=== PATIENT | male | born 1940 | race Caucasian/White ===

== ENCOUNTER 2021-09-16 17:04 | Observation (INO) | payer MEDICARE ==
[2021-09-16] VITALS (17 sets, daily range): BP systolic 125–147; BP diastolic 62–81
[~2021-09-16] VITALS: Ht 170.2 cm; Wt 92.0 kg
--- NOTE | 2021-09-16 17:40 | NUR ---
PT BROUGHT TO TX ROOM VIA WHEELCHAIR, STABLE
[2021-09-16 18:17] LABS: HEMATOCRIT 34.4 % (39.0-50.0); IMMATURE GRANULOCYTES 0.7 % (0.0-5.0); MEAN CELL VOLUME 90.1 fL CALC (80.0-100.0); MEAN CORPUSCULAR HGB 26.2 pG CALC (26.0-32.0); MEAN CORPUSCULAR HGB CONC 29.1 g/dL CAL (32.0-36.0); NEUT# 2.9 thou/uL (1.82-7.42); RED BLOOD COUNT 3.82 mill/uL (4.70-6.10); RED CELL DISTRI WIDTH 18.4 % (11.5-15.5)
[2021-09-16 18:30] LABS: INTERNATIONAL NORMALIZED RATIO 1.7 RATIO (0.7-1.3); PROTHROMBIN TIME 16.9 SECONDS (9.0-12.5)
[2021-09-16 18:31] LABS: ALBUMIN 3.2 g/dL (3.2-5.0); BILIRUBIN, TOTAL 0.8 mg/dL (0.0-1.4); CREATININE 1.5 mg/dL (0.7-1.3); POTASSIUM 3.5 mmol/l (3.5-5.1); TOTAL PROTEIN 6.3 g/dL (6.3-8.2)
[2021-09-16 18:47] LABS: URINE BILIRUBIN - DIPSTICK NEGATIVE (NEGATIVE); URINE BLOOD DIPSTICK SMALL (NEGATIVE); URINE COLOR YELLOW; URINE GLUCOSE - DIPSTICK 100 mg/dL (NEGATIVE); URINE KETONE NEGATIVE (NEGATIVE); URINE LEUK ESTERASE MODERATE (NEGATIVE); URINE NITRITE - DIPSTICK NEGATIVE (Negative); URINE PROTEIN - DIPSTICK 30 mg/dL (NEG-TRACE); URINE UROBILINOGEN - DIPSTICK 0.2 E.U./dL (0.2)
[2021-09-16 18:54] LABS: URINE WBC >100 WBC/hpf (0-5)
--- NOTE | 2021-09-16 22:48 | NUR ---
PT ARRIVED TO THE ICU BY WHEELCHAIR, A/Ox4, NO DISTRESS NOTED, ON RA, BED ALARM ON AND IN LOW POSITION, CALL LIGHT IN REACH
--- NOTE | 2021-09-17 00:03 | NUR ---
PT IN BED ASLEEP WITH CPAP ON, NO DISTRESS NOTED, BED ALARM ON AND IN LOW POSITION, CALL LIGHT IN REACH
[2021-09-17 00:10] VITALS: BP 142/76
[2021-09-17 04:01] VITALS: BP 166/85
[2021-09-17 04:44] LABS: HEMATOCRIT 34.3 % (39.0-50.0); MEAN CELL VOLUME 88.9 fL CALC (80.0-100.0); MEAN CORPUSCULAR HGB 25.9 pG CALC (26.0-32.0); MEAN CORPUSCULAR HGB CONC 29.2 g/dL CAL (32.0-36.0); RED BLOOD COUNT 3.86 mill/uL (4.70-6.10); RED CELL DISTRI WIDTH 18.4 % (11.5-15.5)
[2021-09-17 05:15] LABS: ANION GAP 12 (6-22 (CALC)); BUN 28 mg/dL (8-23); BUN/CREATININE RATIO 21 (12-20 (CALC)); CARBON DIOXIDE 26 mmol/l (22-30); CHLORIDE 104 mmol/l (95-108); CREATININE 1.3 mg/dL (0.7-1.3); GFR 53 ML/MIN (>=60 (CALC)); GFR FOR AFR.AMER. > 60 ML/MIN (>=60 (CALC)); MAGNESIUM 2.1 mg/dL (1.6-2.3); POTASSIUM 3.2 mmol/l (3.5-5.1); SODIUM 139 mmol/l (137-146)
--- NOTE | 2021-09-17 06:55 | NUR ---
RECIEVED REPORT FROM MIRIAM ADAMS
--- NOTE | 2021-09-17 07:20 | NUR ---
PT RESTING IN HIGH FOWLERS POSITION. PT A/OX3 ASSESSMENT AND VITAL SIGNS COMPLETED. HEART RYTHYM NORMAL TELE IN PLACE. RESPIRATIONS UNLABORED SOME CRACKLES. BOWEL SOUNDS ACTIVE. IV SITE PATENT/FLUSHED. PT DENIES ANY ADDITONAL NEEDS AT THE MOMENT. PT INSTRUCTED TO USE CALL LIGHT NEEDED. PT VERBALLY STATED UNDERSTANDING. ALL SAFETY PRECAUTIONS IN PLACE WITH CALL LIGHT IN REACH.
[2021-09-17 08:00] VITALS: BP 137/69
[2021-09-17 08:01] VITALS: BP 141/73
[2021-09-17 08:14] VITALS: BP 137/69
[2021-09-17] MEDS ORDERED: CLOPIDOGREL75 MG PO (12:08)
[2021-09-17] MEDS ORDERED: WARFARIN6 MG PO (12:09)
[2021-09-17] MEDS ORDERED: WARFARIN4 MG PO (12:11)
[2021-09-17] MEDS ORDERED: LASIX 80 MG TAB80 MG PO (12:12)
[2021-09-17] MEDS ORDERED: AVAPRO75 MG PO ×2 (12:12→12:13)
[2021-09-17] MEDS ORDERED: TOPROL XL25 M1 PO (12:14)
[2021-09-17] MEDS ORDERED: CRESTOR10 MG PO (12:15)
[2021-09-17] MEDS ORDERED: VICTOZA18 MG/3 ML SC (12:17)
[2021-09-17] MEDS ORDERED: NOVOLOG FL100 UNIT/M SC (12:17)
[2021-09-17] MEDS ORDERED: TAMSULOSIN HCL0.4 MG PO (12:19)
[2021-09-17] MEDS ORDERED: LANTUS SOL100 UNIT/M SC (12:19)
[2021-09-17] MEDS ORDERED: FINASTERIDE5 MG PO (12:19)
[2021-09-17] MEDS ORDERED: XALATAN 0.005%2.5 ML OU (12:20)
--- NOTE | 2021-09-17 12:20 | NUR ---
PT RESTING WITH FAMILY AT BEDSIDE. PT AND FAMILY EDUCATED ON DC INSTRUCTIONS. BOTH PT AND FAMILY VERBALLY STATED UNDERSTANDING. IV REMOVED WITH CATH INTACT. TELE MONITOR AND PULSE OX REMOVED. PT DRESSED SELF WITH MINIMAL HELP.
[2021-09-17] MEDS ORDERED: COMBIGAN0.2 MG/0.5 OU (12:21)
[2021-09-17] MEDS ORDERED: AZOPT1 % OD (12:22)
[2021-09-17] MEDS ORDERED: VENLAFAXINE HC150 MG PO (12:23)
[2021-09-17] MEDS ORDERED: COQ10200 MG PO (12:23)
[2021-09-17] MEDS ORDERED: NEURONTIN300 MG PO (12:24)
[2021-09-17] MEDS ORDERED: OMEPRAZOLE DR40 MG PO (12:24)
[2021-09-17] MEDS ORDERED: HORIZANT300 MG PO (12:26)
[2021-09-17] MEDS ORDERED: VITAMIN B-12500 MCG PO (12:26)
[2021-09-17] MEDS ORDERED: VITAMIN D32000 UNI2 PO (12:27)
[2021-09-17] MEDS ORDERED: MAGNESIUM250 M3 PO (12:28)
[2021-09-17] MEDS ORDERED: TRELEGY ELLIPTA1 AER PO (12:28)
[2021-09-17] MEDS ORDERED: ALBUTEROL SUL0.083 % IN (12:30)
[2021-09-17] MEDS ORDERED: ELIGARD7.5 MG SC (12:31)
--- NOTE | 2021-09-17 13:23 | NUR ---
Discharge instructions given. Patient verbalizes understanding of same. Discharged in stable condition via Wheelchair to Home with staff. All belongings sent with pt.
== END 2021-09-17 13:23 | disposition home or self-care (01) ==
LOC: ED 17:04 → ICU 19:03
PROVIDERS: Nurse Practitioner; ADMIT Hospitalist; ATTEND Hospitalist
DX: I11.0 Hypertensive heart disease with heart failure (principal); I50.9 Heart failure, unspecified; E11.9 Type 2 diabetes mellitus without complications; I48.91 Unspecified atrial fibrillation; Z79.01 Long term (current) use of anticoagulants; Z79.4 Long term (current) use of insulin; Z20.822 Contact with and (suspected) exposure to COVID-19

== ENCOUNTER 2021-09-19 10:59 | Emergency (ER) | payer MEDICARE ==
[2021-09-19] VITALS (9 sets, daily range): BP systolic 128–143; BP diastolic 62–77
[~2021-09-19] VITALS: Ht 170.2 cm; Wt 96.0 kg
[~2021-09-19 10:59] MED LIST: ALBUTEROL SUL0.083 % IN; AVAPRO75 MG PO; AZOPT1 % OD; CLOPIDOGREL75 MG PO; COMBIGAN0.2 MG/0.5 OU; COQ10200 MG PO; CRESTOR10 MG PO; ELIGARD7.5 MG SC; FINASTERIDE5 MG PO; HORIZANT300 MG PO; LANTUS SOL100 UNIT/M SC; LASIX 80 MG TAB80 MG PO; MAGNESIUM250 M3 PO; NEURONTIN300 MG PO; NOVOLOG FL100 UNIT/M SC; OMEPRAZOLE DR40 MG PO; TAMSULOSIN HCL0.4 MG PO; TOPROL XL25 M1 PO; TRELEGY ELLIPTA1 AER PO; VENLAFAXINE HC150 MG PO; VICTOZA18 MG/3 ML SC; VITAMIN B-12500 MCG PO; VITAMIN D32000 UNI2 PO; WARFARIN4 MG PO; WARFARIN6 MG PO; XALATAN 0.005%2.5 ML OU
[2021-09-19 12:03] LABS: HEMATOCRIT 36.2 % (39.0-50.0); HEMOGLOBIN 10.4 g/dl (14.0-18.0); MEAN CELL VOLUME 90.5 fL CALC (80.0-100.0); MEAN CORPUSCULAR HGB CONC 28.7 g/dL CAL (32.0-36.0); NEUT# 3.28 thou/uL (1.82-7.42); RED CELL DISTRI WIDTH 18.6 % (11.5-15.5)
[2021-09-19 12:39] LABS: ALBUMIN 3.6 g/dL (3.2-5.0); BILIRUBIN, TOTAL 0.7 mg/dL (0.0-1.4); CREATININE 1.5 mg/dL (0.7-1.3); POTASSIUM 3.2 mmol/l (3.5-5.1); TOTAL PROTEIN 7.1 g/dL (6.3-8.2)
[2021-09-19 12:44] LABS: INTERNATIONAL NORMALIZED RATIO 1.8 RATIO (0.7-1.3); PROTHROMBIN TIME 18.1 SECONDS (9.0-12.5)
[2021-09-19 13:35] LABS: URINE BILIRUBIN - DIPSTICK NEGATIVE (NEGATIVE); URINE BLOOD DIPSTICK SMALL (NEGATIVE); URINE COLOR YELLOW; URINE GLUCOSE - DIPSTICK 100 mg/dL (NEGATIVE); URINE KETONE NEGATIVE (NEGATIVE); URINE PROTEIN - DIPSTICK NEGATIVE (NEG-TRACE); URINE UROBILINOGEN - DIPSTICK 0.2 E.U./dL (0.2)
[2021-09-19 13:47] LABS: URINE LEUK ESTERASE SMALL (NEGATIVE); URINE NITRITE - DIPSTICK NEGATIVE (Negative)
[2021-09-19 13:48] LABS: URINE WBC 20-50 WBC/hpf (0-5)
[2021-09-19] MEDS ORDERED: CIPROFLOXACN500 MG PO (14:07)
--- NOTE | 2021-09-20 11:19 | NUR ---
Pneumonia post discharge follow up call completed today, 09/20/21. Pt. states he is doing well. No fever, chills, or SOB. Pt. istaking medication prescribed at discharge. No issues with meds. Pt. has follow up appt with PCP scheduled in one week. Tiffanie=jaron is scheduled tomorrow. No questions or concerns voiced by patient at this time.
== END 2021-09-19 14:25 | disposition home or self-care (01) ==
LOC: ED 10:59
DX: I11.0 Hypertensive heart disease with heart failure (principal); I50.9 Heart failure, unspecified; N39.0 Urinary tract infection, site not specified; E87.6 Hypokalemia; E11.9 Type 2 diabetes mellitus without complications; D64.9 Anemia, unspecified; R90.89 Other abnormal findings on diagnostic imaging of central nervous system; Z79.4 Long term (current) use of insulin; Z95.0 Presence of cardiac pacemaker

== ENCOUNTER 2021-12-09 15:19 | Emergency (ER) | payer MEDICARE ==
[~2021-12-09] VITALS: Ht 170.2 cm; Wt 95.2 kg
[~2021-12-09 15:19] MED LIST changes: +CIPROFLOXACN500 MG PO
[2021-12-09] MEDS ORDERED: OMNICEF300 M1 PO (16:07)
[2021-12-09 16:45] VITALS: BP 110/54
== END 2021-12-09 17:00 | disposition home or self-care (01) ==
LOC: ED 15:19
PROC: 0JQG0ZZ Repair Right Lower Arm Subcutaneous Tissue and Fascia, Open Approach (ICD-10-PCS; principal; 2021-12-09)
DX: S51.811A Laceration without foreign body of right forearm, initial encounter (principal); I11.0 Hypertensive heart disease with heart failure; I50.9 Heart failure, unspecified; E11.9 Type 2 diabetes mellitus without complications; W01.0XXA Fall on same level from slipping, tripping and stumbling without subsequent striking against object, initial encounter; Y92.009 Unspecified place in unspecified non-institutional (private) residence as the place of occurrence of the external cause; Z79.4 Long term (current) use of insulin; Z95.810 Presence of automatic (implantable) cardiac defibrillator

== ENCOUNTER 2021-12-18 06:36 | Emergency (ER) | payer MEDICARE ==
[2021-12-18] VITALS (8 sets, daily range): BP systolic 81–144; BP diastolic 42–74
[~2021-12-18] VITALS: Ht 170.2 cm; Wt 54.0 kg
[~2021-12-18 06:36] MED LIST changes: +OMNICEF300 M1 PO
[2021-12-18] MEDS ORDERED: BUMETANIDE1 MG PO (06:48)
[2021-12-18] MEDS ORDERED: VICTOZA18 MG/3 ML SC (06:51)
[2021-12-18 08:04] LABS: IMMATURE GRANULOCYTES 0.3 % (0.0-5.0); MEAN CORPUSCULAR HGB 29.2 pG CALC (26.0-32.0); MEAN CORPUSCULAR HGB CONC 29.8 g/dL CAL (32.0-36.0); NEUT# 2.68 thou/uL (1.82-7.42); RED BLOOD COUNT 4.59 mill/uL (4.70-6.10); RED CELL DISTRI WIDTH 19.6 % (11.5-15.5)
[2021-12-18 08:07] LABS: HEMATOCRIT 44.9 % (39.0-50.0); HEMOGLOBIN 13.4 g/dl (14.0-18.0); MEAN CELL VOLUME 97.8 fL CALC (80.0-100.0)
[2021-12-18 08:15] LABS: ALBUMIN 3.5 g/dL (3.2-5.0); BILIRUBIN, TOTAL 0.6 mg/dL (0.0-1.4); CREATININE 1.5 mg/dL (0.7-1.3); POTASSIUM 4.1 mmol/l (3.5-5.1); TOTAL PROTEIN 6.8 g/dL (6.3-8.2)
[2021-12-18 08:16] LABS: INTERNATIONAL NORMALIZED RATIO 1.3 RATIO (0.7-1.3); PROTHROMBIN TIME 13.2 SECONDS (9.0-12.5)
[2021-12-18] MEDS ORDERED: HYDROCO/APAP1 TA9 PO (09:37)
== END 2021-12-18 10:18 | disposition home or self-care (01) ==
LOC: ED 06:36
PROVIDERS: Family Medicine
DX: M54.50 Low back pain, unspecified (principal); M79.604 Pain in right leg; S51.801A Unspecified open wound of right forearm, initial encounter; I11.0 Hypertensive heart disease with heart failure; I50.22 Chronic systolic (congestive) heart failure; E11.9 Type 2 diabetes mellitus without complications; W19.XXXA Unspecified fall, initial encounter; Z79.4 Long term (current) use of insulin

== ENCOUNTER 2022-03-31 11:52 | Emergency (ER) | payer MEDICARE ==
[~2022-03-31] VITALS: Ht 170.2 cm; Wt 92.7 kg
[~2022-03-31 11:52] MED LIST changes: +BUMETANIDE1 MG PO; +HYDROCO/APAP1 TA9 PO
[2022-03-31 12:04] VITALS: BP 98/52
[2022-03-31 12:26] LABS: IMMATURE GRANULOCYTES 0.3 % (0.0-5.0); MEAN CELL VOLUME 98.3 fL CALC (80.0-100.0); MEAN CORPUSCULAR HGB 31.2 pG CALC (26.0-32.0); MEAN CORPUSCULAR HGB CONC 31.8 g/dL CAL (32.0-36.0); NEUT# 4.5 thou/uL (1.82-7.42); RED BLOOD COUNT 3.46 mill/uL (4.70-6.10); RED CELL DISTRI WIDTH 14.7 % (11.5-15.5)
[2022-03-31 12:30] VITALS: BP 98/48
[2022-03-31 12:37] LABS: HEMOGLOBIN 10.8 g/dl (14.0-18.0)
[2022-03-31 12:45] LABS: ALBUMIN 3.7 g/dL (3.2-5.0); BILIRUBIN, TOTAL 0.7 mg/dL (0.0-1.4); CREATININE 2.4 mg/dL (0.7-1.3); POTASSIUM 5.1 mmol/l (3.5-5.1); TOTAL PROTEIN 7.2 g/dL (6.3-8.2)
[2022-03-31 13:00] VITALS: BP 101/44
[2022-03-31 13:08] LABS: INTERNATIONAL NORMALIZED RATIO 2.6 RATIO (0.7-1.3); PROTHROMBIN TIME 24.4 SECONDS (9.0-12.5)
[2022-03-31 13:30] VITALS: BP 106/48
[2022-03-31 14:00] VITALS: BP 115/52
[2022-03-31 14:30] VITALS: BP 121/47
== END 2022-03-31 14:52 | disposition home or self-care (01) ==
LOC: ED 11:52
PROVIDERS: Emergency Medicine
DX: S09.90XA Unspecified injury of head, initial encounter (principal); S51.012A Laceration without foreign body of left elbow, initial encounter; N28.9 Disorder of kidney and ureter, unspecified; I11.0 Hypertensive heart disease with heart failure; I50.9 Heart failure, unspecified; E11.9 Type 2 diabetes mellitus without complications; W18.30XA Fall on same level, unspecified, initial encounter; Z79.85 Long-term (current) use of injectable non-insulin antidiabetic drugs; Z79.4 Long term (current) use of insulin; Z79.01 Long term (current) use of anticoagulants

== ENCOUNTER 2022-04-24 18:44 | Emergency (ER) | payer MEDICARE | END 2022-04-24 19:30 | disposition left against medical advice (07) | LOC: ED 18:44 → LWOBS 19:30 | DX: Z53.21 Procedure and treatment not carried out due to patient leaving prior to being seen by health care provider (principal) ==

== ENCOUNTER 2022-05-05 12:39 | Emergency (ER) | payer MEDICARE ==
[2022-05-05] VITALS (13 sets, daily range): BP systolic 97–128; BP diastolic 38–100
[~2022-05-05] VITALS: Ht 170.2 cm; Wt 91.6 kg
[2022-05-05 14:18] LABS: MEAN CELL VOLUME 96.4 fL CALC (80.0-100.0); MEAN CORPUSCULAR HGB 31.3 pG CALC (26.0-32.0); MEAN CORPUSCULAR HGB CONC 32.5 g/dL CAL (32.0-36.0); NEUT# 3.08 thou/uL (1.82-7.42); RED BLOOD COUNT 2.81 mill/uL (4.70-6.10); RED CELL DISTRI WIDTH 15.2 % (11.5-15.5)
[2022-05-05 14:23] LABS: HEMATOCRIT 27.1 % (39.0-50.0); HEMOGLOBIN 8.8 g/dl (14.0-18.0)
[2022-05-05 14:48] LABS: ALBUMIN 3.4 g/dL (3.2-5.0); ALKALINE PHOSPHATASE 109 u/l (38-126); ANION GAP 13 (6-22 (CALC)); BILIRUBIN, TOTAL 0.6 mg/dL (0.0-1.4); BUN 69 mg/dL (8-23); BUN/CREATININE RATIO 32 (12-20 (CALC)); CARBON DIOXIDE 22 mmol/l (22-30); CHLORIDE 102 mmol/l (95-108); CREATININE 2.1 mg/dL (0.7-1.3); GFR FOR AFR.AMER. 37 ML/MIN (>=60 (CALC)); GFR OTHER RACES 30 ML/MIN (>=60 (CALC)); SGOT/AST 22 u/l (19-48); SODIUM 132 mmol/l (137-146); TOTAL PROTEIN 6.7 g/dL (6.3-8.2)
[2022-05-05 14:50] LABS: ACT PARTIAL THROMBO TIME 28.1 SECONDS (20.0-32.5)
[2022-05-05 14:51] LABS: INTERNATIONAL NORMALIZED RATIO 1.1 RATIO (0.7-1.3); PROTHROMBIN TIME 10.5 SECONDS (9.0-12.5)
== END 2022-05-05 19:11 | disposition home or self-care (01) ==
LOC: ED 12:39
PROVIDERS: Emergency Medicine
DX: S41.111A Laceration without foreign body of right upper arm, initial encounter (principal); S41.112A Laceration without foreign body of left upper arm, initial encounter; S81.012A Laceration without foreign body, left knee, initial encounter; I13.2 Hypertensive heart and chronic kidney disease with heart failure and with stage 5 chronic kidney disease, or end stage renal disease; E11.22 Type 2 diabetes mellitus with diabetic chronic kidney disease; N18.6 End stage renal disease; I50.9 Heart failure, unspecified; W01.198A Fall on same level from slipping, tripping and stumbling with subsequent striking against other object, initial encounter; Y92.009 Unspecified place in unspecified non-institutional (private) residence as the place of occurrence of the external cause; Z79.01 Long term (current) use of anticoagulants; Z95.0 Presence of cardiac pacemaker; Z79.4 Long term (current) use of insulin; Z99.2 Dependence on renal dialysis

== ENCOUNTER 2022-10-18 15:10 | Observation (INO) | payer MEDICARE ==
[2022-10-18] VITALS (12 sets, daily range): BP systolic 102–142; BP diastolic 40–58
[~2022-10-18] VITALS: Ht 170.2 cm; Wt 97.0 kg
--- NOTE | 2022-10-18 15:10 | NUR ---
PT ARRIVED VIA EMS C/O OF CONFUSION THIS MORNING BUT RESOLVED NOW. PROVIDER IN ROOM ASSESSING PT.
[2022-10-18 15:48] LABS: BASO% 0.2 % (0-3); EOS% 0.2 % (0-8); HEMOGLOBIN 10.6 g/dl (14.0-18.0); IMMATURE GRANULOCYTES 0.3 % (0.0-5.0); LYMPH% 10.7 % (15-41); MEAN CELL VOLUME 98.3 fL CALC (80.0-100.0); MEAN CORPUSCULAR HGB 30.2 pG CALC (26.0-32.0); MEAN CORPUSCULAR HGB CONC 30.7 g/dL CAL (32.0-36.0); MONO% 7.4 % (2-13); NEUT# 9.28 thou/uL (1.82-7.42); NEUT% 81.2 % (42-76); RED BLOOD COUNT 3.51 mill/uL (4.70-6.10); RED CELL DISTRI WIDTH 15.7 % (11.5-15.5)
[2022-10-18 15:50] LABS: HEMATOCRIT 34.5 % (39.0-50.0)
[2022-10-18 16:00] LABS: ALBUMIN 3.7 g/dL (3.2-5.0); CREATININE 2.4 mg/dL (0.7-1.3); POTASSIUM 4.4 mmol/l (3.5-5.1); TOTAL PROTEIN 6.5 g/dL (6.3-8.2)
[2022-10-18 16:11] LABS: INTERNATIONAL NORMALIZED RATIO 1.2 RATIO (0.7-1.3); PROTHROMBIN TIME 11.7 SECONDS (9.0-12.5)
[2022-10-18 16:12] LABS: BILIRUBIN, TOTAL 1.4 mg/dL (0.2-1.3)
[2022-10-18] MEDS ORDERED: ELIQUIS2.5 MG PO (16:44)
[2022-10-18 17:16] LABS: URINE BILIRUBIN - DIPSTICK NEGATIVE (NEGATIVE); URINE BLOOD DIPSTICK MODERATE (NEGATIVE); URINE COLOR YELLOW; URINE GLUCOSE - DIPSTICK >=1000 mg/dL (NEGATIVE); URINE KETONE NEGATIVE (NEGATIVE); URINE PROTEIN - DIPSTICK 30 mg/dL (NEG-TRACE); URINE SPECIFIC GRAVITY 1.015; URINE UROBILINOGEN - DIPSTICK 0.2 E.U./dL (0.2)
[2022-10-18 17:19] LABS: URINE LEUK ESTERASE MODERATE (NEGATIVE); URINE NITRITE - DIPSTICK NEGATIVE (Negative)
[2022-10-18 17:23] LABS: URINE WBC TNTC WBC/hpf (0-5)
--- NOTE | 2022-10-18 19:52 | NUR ---
REPORT RECEIVED FROM Antoni PEREZ RN
--- NOTE | 2022-10-18 20:07 | NUR ---
PATIENT ARRIVED TO FLOOR VIA STRETCHER ACCOMPANIED BY Antoni SWANSON RN. PATIENT ABLE TO STAND ON STANDING SCALE FOR WEIGHT. PATIENT HAS SKIN TEARS TO BILATERAL SHINS AND RIGHT UPPER ARM. RIGHT HIP AND AND RIGHT ARM ARE BRUISED, PATIENT STATES HE FELL A WEEK AGO. ANKLES BILATERALLY HAVE SMALL HEALING WOUNDS. CALL LIGHT AND BEDSIDE TABLE WITHIN REACH. BED ALA ON FOR SAFETY.
--- NOTE | 2022-10-18 20:28 | NUR ---
REPORT CALLED TO FLOOR RN. THIS RN TRANSFERS PATIENT TO ROOM, ASSISTS PATIENT IN TRANSFER TO NEW BED. PATIENT USES URINAL DURING TRANSFER.
[2022-10-19] VITALS (9 sets, daily range): BP systolic 95–125; BP diastolic 42–53
--- NOTE | 2022-10-19 | NUR ---
PATIENT RESTING COMOFRTABLY, NO APPARENT DISTRESS NOTED. RESPIRATIONS EVEN AND UNLABORED. CALL LIGHT AND BEDSIDE TABLE WITHIN REACH. PUREWICK DRAINGING CLOUNDY YELLOW URINE TO SUCCION. BED ALARM ON FOR SAFETY.
--- NOTE | 2022-10-19 04:00 | NUR ---
PATIENT RESTING COMOFRTABLY, NO APPARENT DISTRESS NOTED. RESPIRATIONS EVEN AND UNLABORED.RISE AND FALL OF CHEST NOTED. CALL LIGHT AND BEDSIDE TABLE WITHIN REACH. PUREWICK DRAINGING CLOUNDY YELLOW URINE TO SUCCION. BED ALARM ON FOR SAFETY.
[2022-10-19 05:15] LABS: BASO% 0.1 % (0-3); EOS% 0.7 % (0-8); HEMATOCRIT 31.1 % (39.0-50.0); HEMOGLOBIN 9.8 g/dl (14.0-18.0); IMMATURE GRANULOCYTES 0.4 % (0.0-5.0); LYMPH% 13.9 % (15-41); MEAN CELL VOLUME 98.1 fL CALC (80.0-100.0); MEAN CORPUSCULAR HGB 30.9 pG CALC (26.0-32.0); MEAN CORPUSCULAR HGB CONC 31.5 g/dL CAL (32.0-36.0); MONO% 8.2 % (2-13); NEUT# 5.68 thou/uL (1.82-7.42); NEUT% 76.7 % (42-76); RED BLOOD COUNT 3.17 mill/uL (4.70-6.10); RED CELL DISTRI WIDTH 15.7 % (11.5-15.5)
[2022-10-19 05:39] LABS: ALBUMIN 3.1 g/dL (3.2-5.0); CREATININE 2.1 mg/dL (0.7-1.3); MAGNESIUM 2.3 mg/dL (1.6-2.3); POTASSIUM 4.1 mmol/l (3.5-5.1); TOTAL PROTEIN 5.8 g/dL (6.3-8.2)
[2022-10-19 05:40] LABS: BILIRUBIN, TOTAL 0.7 mg/dL (0.2-1.3)
--- NOTE | 2022-10-19 07:00 | NUR ---
RECEIVE REPORT FROM EDWIN ADAMS. PATIENT ALERTA AND ORIENTED X3. STABLE AT THIS TIME. THE PATIENT IS OBSERVED COMFORTABLE RESTING SITTING IN THE RECLINER CHAIR. PATIENT IS EDUCATED ABOUD MEDICATIONS FOR TODAY AND NURSING PLAN. PT REFER UNDERSTAND. SAFETY AND FALL PRECAUTIONS IN PLACE. CALL LIGHT WITHIN IN REACH.
--- NOTE | 2022-10-19 16:05 | NUR ---
Patient stable at this time. Resting in bed. Safety and fall precautions in place. Call light within in reach
--- NOTE | 2022-10-19 19:30 | NUR ---
RECEIVED BEDSIDE REPORT. PT IS SITTING UP IN BED. FAMILY MEMEBERS PRESENT. PT IS ALERT AND PLEASANT. BED ALARM ON. CALL LIGHT WITHIN REACH
--- NOTE | 2022-10-19 23:22 | NUR ---
pt sleeping well at this time. Has CPAP on. call light in reach. on tele paced rythm 74
[2022-10-20 05:53] LABS: BASO% 0.2 % (0-3); EOS% 2.6 % (0-8); HEMATOCRIT 33.4 % (39.0-50.0); HEMOGLOBIN 10.3 g/dl (14.0-18.0); IMMATURE GRANULOCYTES 0.6 % (0.0-5.0); LYMPH% 13.7 % (15-41); MEAN CELL VOLUME 99.7 fL CALC (80.0-100.0); MEAN CORPUSCULAR HGB 30.7 pG CALC (26.0-32.0); MEAN CORPUSCULAR HGB CONC 30.8 g/dL CAL (32.0-36.0); MONO% 9.5 % (2-13); NEUT# 4.55 thou/uL (1.82-7.42); NEUT% 73.4 % (42-76); RED BLOOD COUNT 3.35 mill/uL (4.70-6.10); RED CELL DISTRI WIDTH 15.6 % (11.5-15.5)
[2022-10-20 06:04] LABS: ALBUMIN 3.4 g/dL (3.2-5.0); CREATININE 2.1 mg/dL (0.7-1.3); MAGNESIUM 2.4 mg/dL (1.6-2.3); POTASSIUM 4.3 mmol/l (3.5-5.1); TOTAL PROTEIN 6.4 g/dL (6.3-8.2)
[2022-10-20 06:08] LABS: BILIRUBIN, TOTAL 0.4 mg/dL (0.2-1.3)
--- NOTE | 2022-10-20 07:05 | NUR ---
RECIEVED BEDSIDE REPORT, WHITE BOARD UPDATED, NS AT 100 ML/HR, PATIENT COMPLAINING OF NOT HAVING HIS EYE DROPS WILL SPEAK WITH PROCIDER, NOT ON HIS MED REC, PAIN TO LEFT LOWER LEG WITH MOVEMONT, PATIENT SAFETY MEASURES IN PLACE.
[2022-10-20 07:29] VITALS: BP 124/58
[2022-10-20] MEDS ORDERED: VYZULTA0.024 % OU (08:07)
[2022-10-20] MEDS ORDERED: BRIMONIDINE OU (08:11)
[2022-10-20] MEDS ORDERED: AZOPT OD (08:12)
[2022-10-20 12:00] VITALS: BP 131/55
[2022-10-20] MEDS ORDERED: CIPROFLOXACN500 MG PO (13:02)
--- NOTE | 2022-10-20 14:30 | NUR ---
PATIENT IV REMOVED, TELEMETRY REMOVED, DISCHARGE INSTRUCTIONS GIVEN, NO COMPLAINTS, PATIENT LEFT IN STABLE CONDITION, VIA WHEELCHAUIR TO PRAVEENA GARCIA.
== END 2022-10-20 14:21 | disposition home or self-care (01) ==
LOC: ED 15:10 → ED-I 18:29 → ED 18:40 → MS2 18:41
PROVIDERS: Family Medicine; Nurse Practitioner Family; ADMIT Internal Medicine; ATTEND Internal Medicine
DX: N30.01 Acute cystitis with hematuria (principal); A04.6 Enteritis due to Yersinia enterocolitica; I13.0 Hypertensive heart and chronic kidney disease with heart failure and stage 1 through stage 4 chronic kidney disease, or unspecified chronic kidney disease; I50.9 Heart failure, unspecified; E11.22 Type 2 diabetes mellitus with diabetic chronic kidney disease; N18.9 Chronic kidney disease, unspecified; E11.622 Type 2 diabetes mellitus with other skin ulcer; L97.329 Non-pressure chronic ulcer of left ankle with unspecified severity; I48.20 Chronic atrial fibrillation, unspecified; J44.9 Chronic obstructive pulmonary disease, unspecified; E66.9 Obesity, unspecified; B96.20 Unspecified Escherichia coli [E. coli] as the cause of diseases classified elsewhere; Z95.0 Presence of cardiac pacemaker; Z86.73 Personal history of transient ischemic attack (TIA), and cerebral infarction without residual deficits; Z79.4 Long term (current) use of insulin; Z20.822 Contact with and (suspected) exposure to COVID-19; M79.605 Pain in left leg

== ENCOUNTER 2022-10-24 12:23 | Emergency (ER) | payer MEDICARE ==
[~2022-10-24 12:23] MED LIST changes: +AZOPT OD; +BRIMONIDINE OU; +ELIQUIS2.5 MG PO; +VYZULTA0.024 % OU
[2022-10-24 12:38] VITALS: BP 135/55
[2022-10-24 13:00] VITALS: BP 129/58
[2022-10-24 13:08] LABS: BASO% 0.1 % (0-3); EOS% 1.3 % (0-8); HEMATOCRIT 34.3 % (39.0-50.0); HEMOGLOBIN 10.6 g/dl (14.0-18.0); IMMATURE GRANULOCYTES 2.4 % (0.0-5.0); LYMPH% 14.2 % (15-41); MEAN CELL VOLUME 98.6 fL CALC (80.0-100.0); MEAN CORPUSCULAR HGB 30.5 pG CALC (26.0-32.0); MEAN CORPUSCULAR HGB CONC 30.9 g/dL CAL (32.0-36.0); MONO% 6.5 % (2-13); NEUT# 6.17 thou/uL (1.82-7.42); NEUT% 75.5 % (42-76); RED BLOOD COUNT 3.48 mill/uL (4.70-6.10); RED CELL DISTRI WIDTH 15.3 % (11.5-15.5)
[2022-10-24 13:28] LABS: ALBUMIN 3.2 g/dL (3.2-5.0); POTASSIUM 4.5 mmol/l (3.5-5.1); TOTAL PROTEIN 5.9 g/dL (6.3-8.2)
[2022-10-24 13:28] LABS: INTERNATIONAL NORMALIZED RATIO 1.1 RATIO (0.7-1.3); PROTHROMBIN TIME 10.7 SECONDS (9.0-12.5)
[2022-10-24 13:32] LABS: BILIRUBIN, TOTAL 0.6 mg/dL (0.2-1.3)
[2022-10-24 14:08] VITALS: BP 129/58
== END 2022-10-24 14:10 | disposition home or self-care (01) ==
LOC: ED 12:23
PROVIDERS: Family Medicine; Nurse Practitioner
DX: L03.116 Cellulitis of left lower limb (principal); E11.649 Type 2 diabetes mellitus with hypoglycemia without coma; I13.0 Hypertensive heart and chronic kidney disease with heart failure and stage 1 through stage 4 chronic kidney disease, or unspecified chronic kidney disease; I50.9 Heart failure, unspecified; E11.22 Type 2 diabetes mellitus with diabetic chronic kidney disease; N18.9 Chronic kidney disease, unspecified; Z95.0 Presence of cardiac pacemaker; Z79.4 Long term (current) use of insulin

== ENCOUNTER 2022-11-03 11:54 | Emergency (ER) | payer MEDICARE ==
[~2022-11-03] VITALS: Ht 165.1 cm; Wt 100.0 kg
[2022-11-03 12:00] VITALS: BP 141/63
[2022-11-03 12:19] LABS: BASO% 0.1 % (0-3); EOS% 1.2 % (0-8); HEMATOCRIT 39.3 % (39.0-50.0); HEMOGLOBIN 12.1 g/dl (14.0-18.0); IMMATURE GRANULOCYTES 0.5 % (0.0-5.0); LYMPH% 15.3 % (15-41); MEAN CELL VOLUME 98.3 fL CALC (80.0-100.0); MEAN CORPUSCULAR HGB 30.3 pG CALC (26.0-32.0); MEAN CORPUSCULAR HGB CONC 30.8 g/dL CAL (32.0-36.0); MONO% 4.1 % (2-13); NEUT# 6.01 thou/uL (1.82-7.42); NEUT% 78.8 % (42-76); RED CELL DISTRI WIDTH 15.4 % (11.5-15.5)
[2022-11-03 12:31] LABS: BILIRUBIN, TOTAL 0.8 mg/dL (0.2-1.3); POTASSIUM 4.7 mmol/l (3.5-5.1)
[2022-11-03 12:35] LABS: ALBUMIN 4.4 g/dL (3.2-5.0); TOTAL PROTEIN 7.7 g/dL (6.3-8.2)
[2022-11-03 13:48] VITALS: BP 141/63
[2022-11-03] MEDS ORDERED: MIRALAX17 GM PO (13:49)
== END 2022-11-03 14:11 | disposition home or self-care (01) ==
LOC: ED 11:54
PROVIDERS: Nurse Practitioner
DX: K59.09 Other constipation (principal); E11.9 Type 2 diabetes mellitus without complications; I11.0 Hypertensive heart disease with heart failure; I50.9 Heart failure, unspecified; Z95.0 Presence of cardiac pacemaker; Z79.4 Long term (current) use of insulin